=== PATIENT | female | born 1970 | race Asian ===

== ENCOUNTER 2016-08-13 09:41 | Outpatient (CLI) | payer OTHER ==
[~2016-08-13 09:41] MED LIST: CETI10TA PO; DIPH25CA90 PO; MEDROL DOSEPAK4 MG OR; WELLBUTRIN75 MG OR; ZOLP10TA2; ZOLP10TA2 PO
== END 2016-08-13 19:30 | disposition home or self-care (01) ==
LOC: NM 09:41
DX: R07.89 Other chest pain (principal); R00.2 Palpitations; R06.02 Shortness of breath
CPT/HCPCS: 93306

== ENCOUNTER 2016-09-10 07:53 | Outpatient (CLI) | payer OTHER | END 2016-09-10 19:16 | disposition home or self-care (01) | LOC: NM 07:53 | DX: R07.89 Other chest pain (principal) | CPT/HCPCS: A9500 ==